=== PATIENT | female | born 1975 | race American Indian/Alaskan Native ===

== ENCOUNTER 2020-01-22 09:00 | Day surgery (SDC) | payer OTHER ==
[2020-01-20 10:43] LABS: Basophils # (Auto) 0.1 K/mm3 (0.0-0.1); Basophils % (Auto) 0.7 % (0.0-1.8); Eosinophils # (Auto) 0.1 K/mm3 (0.0-0.4); Eosinophils % (Auto) 1.4 % (0.0-4.3); Lymphocytes # (Auto) 2.4 K/mm3 (1.2-5.4); Lymphocytes % (Auto) 31.5 % (13.4-35.0); Mean Corpuscular HGB Conc 29 % (30-34); Monocytes # (Auto) 0.5 K/mm3 (0.0-0.8); Monocytes % (Auto) 6.5 % (0.0-7.3); Platelet Count 460 K/mm3 (140-440); Red Blood Count 4.17 M/mm3 (3.65-5.03); Red Cell Distribution Width 19.9 % (13.2-15.2)
[2020-01-20 10:45] LABS: Hematocrit 25.4 % (30.3-42.9); Hemoglobin 7.5 gm/dl (10.1-14.3); Mean Corpuscular Volume 61 fl (79-97)
--- NOTE | 2020-01-20 11:22 | Anesthesia Consultation ---
Anesthesia Consult and Med Hx Date of service: 01/22/20 - Airway Anesthetic Teeth Evaluation: Poor (multiple missing) ROM Head & Neck: Adequate Mental/Hyoid Distance: Adequate Mallampati Class: Class II Intubation Access Assessment: Probably Good - Pulmonary Exam CTA: Yes - Cardiac Exam Cardiac Exam: RRR - Pre-Operative Health Status ASA Pre-Surgery Classification: ASA3 Proposed Anesthetic Plan: General Nerve Block: TAP - Pulmonary Hx Smoking: Yes (quit 10days ago) Hx Respiratory Symptoms: No Hx Sleep Apnea: Yes (sleep study 10yrs ago; states never prescribed CPAP) - Cardiovascular System Hx Hypertension: No Hx Heart Attack/AMI: No Hx Percutaneous Transluminal Coronary Angioplasty (PTCA): No Hx Cardia Arrhythmia: No - Central Nervous System CVA: No - Gastrointestinal Hx Gastroesophageal Reflux Disease: No - Endocrine Hx Renal Disease: No Hx Liver Disease: No Hx Insulin Dependent Diabetes: No Hx Non-Insulin Dependent Diabetes: No Hx Thyroid Disease: No - Hematic Hx Anemia: Yes - Other Systems Hx Obesity: Yes (BMI 48) - Additional Comments Anesthesia Medical History Comments: No hx anesthetic complications.
--- NOTE | 2020-01-22 07:09 | History and Physical Report ---
History of Present Illness Date of examination: 01/22/20 Date of admission: January 22, 2020 Chief complaint: Symptomatic uterine fibroids History of present illness: 44-year-old -0-3-3 with a history of symptomatic uterine fibroids and menorrhagia. The patient has had significant vaginal bleeding resulting in iron deficiency anemia. Pelvic ultrasound demonstrated a large fibroid uterus with a solitary fibroid measuring 7.3 cm. The patient is elected to undergo definitive surgical management. She will be transfused prior to surgery. 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 Social history: single - Obstetrical History : 6 Para: 3 Hx # Term Pregnancies: 3 Number of Pregnancies: 0 Spontaneous Abortions: 3 Induced : 3 Medications and Allergies Allergies Allergy/AdvReac Type Severity Reaction Status Date / Time No Known Allergies Allergy Verified 01/15/20 15:46 Home Medications Medication Instructions Recorded Confirmed Last Taken Type Ibuprofen [Motrin] 600 mg PO Q8H PRN #60 tablet 10/31/13 01/15/20 Unknown Rx Multivitamin [One-Daily 1 each PO DAILY 01/15/20 01/15/20 Unknown History Multi-Vitamin] Active Meds: Active Medications Celecoxib (Celebrex) 200 mg PO PREOP NR Stop: 01/22/20 23:00 Fentanyl (Sublimaze) 100 mcg IV ONCE PRN PRN Reason: sedation for nerve block Stop: 01/22/20 23:00 Gabapentin (Gabapentin) 600 mg PO PREOP NR Stop: 01/22/20 23:00 Lactated Ringer's (Lactated Ringers) 1,000 mls @ 100 mls/hr IV DIRECT MICHAEL Stop: 01/22/20 23:59 Sodium Chloride (Nacl 0.9% 500 Ml) 500 mls @ 0 mls/hr IV ONCE NR Stop: 01/22/20 18:00 Magnesium Oxide (Mag-Ox) 400 mg PO PREOP MICHAEL Stop: 01/22/20 23:00 Midazolam HCl (Versed) 2 mg IV PREOP NR Stop: 01/22/20 23:00 Review of Systems All systems: negative Constitutional: fatigue Genitourinary: vaginal bleeding, pelvic pain - Vital Signs Vital signs: Vital Signs Temp Pulse Resp BP Pulse Ox 97.9 F 66 20 164/66 98 01/20/20 10:00 01/20/20 10:00 01/20/20 10:00 01/20/20 10:00 01/20/20 10:00 Temp Pulse Resp BP Pulse Ox 97.9 F 66 20 164/66 98 01/20/20 10:00 01/20/20 10:00 01/20/20 10:00 01/20/20 10:00 01/20/20 10:00 - Physical Exam Breasts: Positive: deferred Cardiovascular: Regular rate Lungs: Positive: Clear to auscultation Abdomen: Positive: normal appearance Results Result Diagrams: 01/20/20 10:10 All other labs normal. Assessment and Plan - Patient Problems (1) Iron deficiency anemia secondary to blood loss (chronic) Status: Acute Plan to address problem: Patient is scheduled for robotic hysterectomy and bilateral salpingectomy. The patient will be transfused 2 units preoperatively (2) Uterine fibroid Status: Acute (3) Menorrhagia Status: Acute (4) Morbid obesity Status: Acute
[~2020-01-22 09:00] MED LIST: CELECOXIB 200 MG CAP PO NR; GABAPENTIN 300 MG CAP PO NR; LACTATED RINGERS 1,000 ML IV SCH; MAGNESIUM OXIDE 400 MG TAB PO SCH; MIDAZOLAM 2 MG/2 ML INJ IV NR; SODIUM CHLORIDE 0.9% 500 ML 500 ML IV NR; fentaNYL 100 MCG/2 ML INJ IV PRN
[2020-01-22] MEDS ORDERED: dexAMETHasone 4 MG/ML VIAL ONE (09:06)
[2020-01-22] MEDS ORDERED: BUPIVACAINE-EPINEPHRINE/PF 0.25%-1:200,000 (30 ML) VIAL INFILTRATI ONE (09:06)
[2020-01-22] MEDS ORDERED: dexAMETHasone 20 MG/5 ML VIAL ONE (09:51)
[2020-01-22] MEDS ORDERED: LIDOCAINE MPF (2%) 20 MG/1 ML VIAL 5 ML ONE (09:51)
[2020-01-22] MEDS ORDERED: KETOROLAC 30 MG/1 ML INJ ONE (09:51)
[2020-01-22] MEDS ORDERED: ONDANSETRON 4 MG/2 ML INJ ONE (09:51)
[2020-01-22] MEDS ORDERED: propofoL 200 MG/20 ML VIAL IV ONE (09:51)
[2020-01-22] MEDS ORDERED: fentaNYL 100 MCG/2 ML INJ ONE (09:51)
[2020-01-22] MEDS ORDERED: ROCURONIUM 50 MG/5 ML INJ IV ONE (10:00)
[2020-01-22] MEDS ORDERED: NEOMY 40 MG/POLYMYXIN B 200,000 UNITS/ML (GU) AMPULE IR ONE ×2 (10:15→11:25)
--- NOTE | 2020-01-22 10:20 | Anesthesia Day of Surgery ---
Anesthesia Day of Surgery - Day of Surgery Patient Examined: Yes Patient H&P Reviewed: Yes Patient is NPO: Yes
[2020-01-22] MEDS ORDERED: SODIUM CHLORIDE 0.9% IRR 1,500 ML BOTTLE IR ONE (11:25)
[2020-01-22] MEDS ORDERED: SODIUM CHLORIDE 0.9% IRRIG SOLN 2000 ML IR ONE (11:25)
[2020-01-22] MEDS ORDERED: GLYCOPYRROLATE 0.4 MG/2 ML INJ ONE (11:50)
[2020-01-22] MEDS ORDERED: NEOSTIGMINE 10MG/10 ML INJ MDV ONE (11:50)
[2020-01-22] MEDS ORDERED: LACTATED RINGERS 1,000 ML ONE (11:52)
[2020-01-22] MEDS ORDERED: MORPHINE 4 MG/1 ML INJ IV PRN (12:14)
[2020-01-22] MEDS ORDERED: ACETAMINOPHEN 325 MG TAB PO PRN (12:14)
[2020-01-22] MEDS ORDERED: ZOLPIDEM 5 MG TAB PO PRN (12:14)
[2020-01-22] MEDS ORDERED: oxyCODONE /ACETAMINOPHEN 5-325MG TAB PO PRN (12:14)
[2020-01-22] MEDS ORDERED: ONDANSETRON 4 MG/2 ML INJ IV PRN (12:14)
--- NOTE | 2020-01-22 12:14 | Operative Report ---
Operative Report Operative Report: Date of surgery: January 22, 2020 Preoperative diagnoses: Symptomatic uterine fibroids; menorrhagia; iron defici ency anemia Postoperative diagnoses: Same as above Procedure: Robotic hysterectomy; bilateral salpingectomy Surgeon: Milla Doty M.D. Beer Cooler: Annmarie Sarmiento Anesthesia: Gen. endotracheal anesthesia Estimated blood loss: 50 mL Pathology: Uterus, cervix, leiomyomas, bilateral tubes Indication: 44-year-old -0-3-3 with symptomatic uterine fibroids. Patient has significant menorrhagia which is contributed to her iron deficiency anemia. The patient was transfused 2 units packed red blood cells preoperatively. Procedure: The patient was taken to the operating room and given general endotracheal anesthesia without complication. She is prepped and draped in a normal sterile fashion. A bivalve speculum was placed in the patient's vagina and a single- tooth tenaculum placed on the anterior lip of the cervix. The uterus was sounded with the uterine sound. A [employer] uterine manipulator was placed in the bivalve speculum was then removed. Attention was then turned to the patient's abdomen where a millimeter supra umbilical skin incision was then made. A Veress needle was placed and peritoneal entry was verified water-filled syringe. Insufflation of the peritoneal cavity was performed with CO2 gas. The 12 mm trocar was then placed under direct visualization. An additional 8 mm trocar was placed on the patient's left and right lateral side just opposite of the supraumbilical trocar. An additional 8 mm right lateral trocar was then placed as the accessory port. The supraumbilical 12 mm trocar site was closed with the Ancelmo Allison device and 0-vicryl suture. The patient was then placed in steep Trendelenburg. The da Namita robot was then engaged. A fenestrated forcep was placed in arm 2 and a vessel sealer was placed in arm 1. General survey of the patient's abdomen and pelvis revealed a large fibroid uterus with multiple leiomyomas. The tubes and ovaries were normal in appearance. The surgeon then transferred to the surgical console. The mesosalpinx was then isolated on the right. The vessel sealer was used to coagulate the mesosalpinx which was then transected. The tube was transected from the ovary. The tubo-ovarian ligament was then coagulated and transected. The round ligament was then coagulated and transected also. The vesicouterine peritoneum was then entered from the patient's right side. The uterine vessels were then coagulated with the vessel sealer. The vessels were then transected . Attention was then turned to the patient's left side where the tubo-ovarian ligament and mesosalpinx were again isolated coagulated and transected. The vesical peritoneum was then entered from the left and joined in the midline. Peritoneum was reflected off of the lower uterine segment. Uterine vessels were then coagulated and then transected. The blood supply to the uterus was adequately contained, a posterior colpotomy was made. The V care ring was visualized. Posterior colpotomy was created with the monopolar scissors. The incision was continued circumferentially until anterior colpotomy was made. The cervix and uterus were amputated from the vaginal cuff. The Jamison myoma was extracted and the uterus was bivalved in order to facilitate delivery through the vagina. The uterus was then removed along with the tubes bilaterally through the vagina and a warm laparotomy sponge was placed and maintain the pneumoperitoneum. The vaginal cuff was then closed in a running fashion with V lock suture. Irrigation of the pelvis was performed. Hemoblast was applied to the incision. The skin was then reapproximated with 4-0 Monocryl. The tissue was sent to pathology which included the cervix, leiomyomas, bilateral tubes and uterus. The patient was then successfully extubated. She was then taken to the recovery room in stable condition. All sponge laps and needle counts were correct x2.
[2020-01-22] MEDS ORDERED: KETOROLAC 30 MG/1 ML INJ IV SCH (13:00)
[2020-01-22] MEDS ORDERED: D5W/LACTATED RINGERS 1,000 ML IV SCH (13:00)
[2020-01-22] MEDS: HYDROmorphone 1 MG/1 ML INJ IV PRN ×2 (13:10→13:19)
--- NOTE | 2020-01-22 13:48 | Post Anesthesia Evaluation ---
- Post Anesthesia Evaluation Patient Participated: Yes Airway Patent: Yes Stable Respiratory Function: Yes Nausea/Vomiting: No Temp > 96.8F: Yes Pain Manageable: Yes Adequeate Hydration: Yes Anesthesia Complications: No
[2020-01-22] MEDS ORDERED: oxyCODONE /ACETAMINOPHEN 5-325MG TAB PO ONE (14:21)
[2020-01-22 15:55] VITALS: BP 123/75
[2020-01-22] MEDS ORDERED: IBUPROFEN 600 MG TAB PO SCH (18:00)
== END 2020-01-22 16:58 | disposition home or self-care (01) ==
LOC: OR 09:00
PROVIDERS: ATTEND Obstetrics & Gynecology
DX: N92.0 Excessive and frequent menstruation with regular cycle (principal); D25.9 Leiomyoma of uterus, unspecified; D50.0 Iron deficiency anemia secondary to blood loss (chronic); E66.01 Morbid (severe) obesity due to excess calories; G47.30 Sleep apnea, unspecified; Z11.59 Encounter for screening for other viral diseases; Z79.899 Other long term (current) drug therapy; Z87.891 Personal history of nicotine dependence; Z98.890 Other specified postprocedural states; Z68.42 Body mass index [BMI] 45.0-49.9, adult
CPT/HCPCS: 36415; 58554; 84703; 85025; 86850; 86900; 86901; 86920; 88307; A4217; J0690; J1100; J1170; J1885; J2250; J2405; J2704; J2710; J3010; J7040; J7120; P9016; S2900; U0003; 64450; 88309